=== PATIENT | male | born 1955 | race Caucasian/White ===

== ENCOUNTER 2023-02-02 13:10 | Observation (INO) ==
[2023-02-02 13:46] LABS: ABS Basophils 0.1 10^3/uL (0.0-0.1); ABS Eosinophils 0.1 10^3/uL (0.0-0.5); ABS Lymphocytes 1.8 10^3/uL (1.0-4.8); ABS Monocytes 0.6 10^3/uL (0.0-1.1); ABS Neutrophils 6.3 10^3/uL (1.5-7.6); ABS Nucleated RBC 0.01 10^3/ul; Eosinophil % 1.3 %; Hematocrit 50.4 % (38-53); Hemoglobin 17.5 g/dL (13.2-16.3); Lymphocyte % 20.3 %; Mean Corpuscular Hemoglobin 33.2 pg (27-33); Mean Corpuscular Hgb Conc 34.8 g/dL (31-36); Mean Corpuscular Volume 95.3 fL (80-97); Mean Platelet Volume 8.4 fL (7.5-11.2); Nucleated Red Blood Cells % 0.1 /100 WBC (0.0-0.4); Platelet Count 283 10^3/uL (150-450); Red Blood Count 5.29 10^6/uL (4.06-5.63); Red Cell Distribution Width 14.4 % (12-17)
[2023-02-02 13:49] LABS: INR 1.02 (0.83-1.13)
[2023-02-02] MEDS ORDERED: Iodixanol (CONTRAST) 320 MG/ML 100 ML SDV IV ONE (13:55)
[2023-02-02 14:01] LABS: Albumin 4.8 g/dL (3.2-5.2); Albumin/Globulin Ratio 1.7 (1-3); Calcium 10.1 mg/dL (8.6-10.3); Creatinine, Serum 1.04 mg/dL (0.67-1.17); Globulin 2.9 g/dL (2-4); Potassium 4.3 mmol/L (3.5-5.0); Total Bilirubin 0.6 mg/dL (0.2-1.0); Total Protein 7.7 g/dL (6.4-8.9); eGFR CKD-EPI 78.2 (>60)
[2023-02-02] MEDS ORDERED: NS 0.9% 1000 ml BAG 1,000 ML IV ONE (14:06)
[2023-02-02] MEDS ORDERED: Thiamine 100 MG/ML 2 ml VIAL 100 MG, Folic Acid IV 1 MG, Multiple Vitamin IV ADULT 10 M... IV ONE (14:30)
[2023-02-02] MEDS ORDERED: Thiamine 100 MG/ML 2 ml VIAL 500 MG in NS 0.9% 250 ml 250 ML IV ONE (15:00)
[2023-02-02 15:14] LABS: High Sensitivity Troponin 1 Hr 6 pg/mL (<20)
[2023-02-02] MEDS ORDERED: Albuterol HFA INHALER 8 gm MDI INH PRN (15:21)
[2023-02-02 15:25] LABS: Albumin 4.2 g/dL (3.2-5.2); Albumin/Globulin Ratio 1.6 (1-3); Calcium 9.1 mg/dL (8.6-10.3); Creatinine, Serum 0.98 mg/dL (0.67-1.17); Direct Bilirubin 0.1 mg/dL (0.03-0.18); Globulin 2.6 g/dL (2-4); Indirect Bilirubin 0.4 mg/dL (0.3-1.0); Potassium 4.4 mmol/L (3.5-5.0); Total Bilirubin 0.5 mg/dL (0.2-1.0); Total Protein 6.8 g/dL (6.4-8.9)
[2023-02-02 17:07] LABS: Urine Appearance Clear; Urine Bilirubin Negative (Negative); Urine Blood Negative (Negative); Urine Color Yellow; Urine Glucose Negative (Negative); Urine Ketones Negative (Negative); Urine Nitrite Negative (Negative); Urine Protein Negative (Negative); Urine Specific Gravity 1.043 (1.002-1.030); Urine Urobilinogen Negative (Negative)
[2023-02-02] MEDS: Multivitamins/Minerals TAB PO SCH (17:23)
[2023-02-02] MEDS: Tiotropium Brom/Olodaterol MDI (ACUTE) INH SCH (17:23)
[2023-02-03] MEDS: Thiamine 100 MG/ML 2 ml VIAL 500 MG in NS 0.9% 250 ml 250 ML IV SCH ×4 (00:23→21:21)
[2023-02-03 06:27] LABS: ABS Basophils 0.1 10^3/uL (0.0-0.1); ABS Eosinophils 0.2 10^3/uL (0.0-0.5); ABS Lymphocytes 1.5 10^3/uL (1.0-4.8); ABS Monocytes 0.6 10^3/uL (0.0-1.1); ABS Neutrophils 3.6 10^3/uL (1.5-7.6); Eosinophil % 3.5 %; Hematocrit 46.4 % (38-53); Hemoglobin 15.9 g/dL (13.2-16.3); Lymphocyte % 25.2 %; Mean Corpuscular Hemoglobin 32.6 pg (27-33); Mean Corpuscular Hgb Conc 34.3 g/dL (31-36); Mean Corpuscular Volume 95.1 fL (80-97); Mean Platelet Volume 8.6 fL (7.5-11.2); Platelet Count 233 10^3/uL (150-450); Red Blood Count 4.87 10^6/uL (4.06-5.63); Red Cell Distribution Width 14.5 % (12-17)
[2023-02-03] MEDS: Tiotropium Brom/Olodaterol MDI (ACUTE) INH SCH (07:46)
[2023-02-03] MEDS: Multivitamins/Minerals TAB PO SCH (09:44)
[2023-02-03 09:55] LABS: HDL Cholesterol 82.4 mg/dL
[2023-02-03] MEDS: Enoxaparin 40 MG/0.4 ML SYR SUBCUT SCH (10:21)
[2023-02-04] MEDS: Tiotropium Brom/Olodaterol MDI (ACUTE) INH SCH (07:12)
[2023-02-04] MEDS: Thiamine 100 MG/ML 2 ml VIAL 500 MG in NS 0.9% 250 ml 250 ML IV SCH (10:53)
[2023-02-04] MEDS: Enoxaparin 40 MG/0.4 ML SYR SUBCUT SCH (10:57)
[2023-02-04] MEDS: Multivitamins/Minerals TAB PO SCH (10:57)
[2023-02-04 11:25] VITALS: BP 133/79
== END 2023-02-04 12:40 | disposition home or self-care (01) ==
LOC: ED 13:10 → INTOOBSV 15:04 → EDHOLD 15:04 → MEDTELE 21:37
PROVIDERS: ADMIT Hospitalist; ATTEND Hospitalist